=== PATIENT | female | born 1970 | race Caucasian/White ===

== ENCOUNTER → 2017-12-14 | Outpatient (CLI) | payer OTHER ==
[2017-12-14 08:40] LABS: HEMATOCRIT 39.6 % (37.0-47.0); HEMOGLOBIN 13.1 g/dl (12.0-16.0); MEAN CELL VOLUME 86.1 fl (81.0-99.0); MEAN CORPUSCULAR HGB 28.5 pg (27.0-31.0); MEAN CORPUSCULAR HGB CONC 33.1 g/dl (33.0-37.0); MEAN PLATELET VOLUME 10.1 fl (9.6-12.3); RED BLOOD COUNT 4.6 10*6/uL (4.10-5.10); RED CELL DISTRI WIDTH 12.6 % (0-14.5); WHITE BLOOD COUNT 7.6 10*3/uL (4.8-10.8)
[2017-12-14 09:17] LABS: CHLORIDE 106 mmol/L (98-107); SODIUM 139 mmol/L (136-145)
[2017-12-14 09:24] LABS: ALBUMIN 3.5 gm/dl (3.1-4.5); ALKALINE PHOSPHATASE 139 U/L (45-117); BUN 8 mg/dl (7-24); CHOLESTEROL 252 mg/dL (<200); CREATININE 0.68 mg/dL (0.55-1.02); HDL CHOLESTEROL 62 mg/dl (40-60); LDL CHOLESTEROL 163 mg/dL (9-159); SGOT/AST 17 IU/L (3-35); SGPT/ALT 25 U/L (12-78); TOTAL PROTEIN 7.1 gm/dL (6.4-8.2); TRIGLYCERIDES 135 mg/dl (<150); VLDL CHOLESTEROL 27 mg/dL (6-40)
[2017-12-14 15:42] LABS: VITAMIN D, 25-HYDROXY 12.9 ng/mL (30-100)
== END | disposition home or self-care (01) ==
LOC: LAB 08:16
PROVIDERS: Family Medicine
DX: E78.00 Pure hypercholesterolemia, unspecified (principal); E74.9 Disorder of carbohydrate metabolism, unspecified; M54.5 Low back pain; F41.1 Generalized anxiety disorder; E74.00 Glycogen storage disease, unspecified; K57.90 Diverticulosis of intestine, part unspecified, without perforation or abscess without bleeding

== ENCOUNTER 2019-07-30 16:01 | Emergency (ER) | payer OTHER ==
[~2019-07-30] VITALS: Wt 63.5 kg
== END 2019-07-30 17:04 | disposition home or self-care (01) ==
LOC: ED 16:01
DX: S01.01XA Laceration without foreign body of scalp, initial encounter (principal); Z88.1 Allergy status to other antibiotic agents; W20.8XXA Other cause of strike by thrown, projected or falling object, initial encounter; Y93.89 Activity, other specified; Y92.89 Other specified places as the place of occurrence of the external cause; Y99.8 Other external cause status

== ENCOUNTER 2019-08-06 15:24 | Emergency (ER) | payer OTHER ==
[~2019-08-06] VITALS: Ht 162.5 cm; Wt 65.8 kg
== END 2019-08-06 15:54 | disposition home or self-care (01) ==
LOC: ED 15:24
DX: S01.01XD Laceration without foreign body of scalp, subsequent encounter (principal); Z88.1 Allergy status to other antibiotic agents; W20.8XXD Other cause of strike by thrown, projected or falling object, subsequent encounter

== ENCOUNTER → 2020-08-01 | Outpatient (CLI) | payer OTHER | END | disposition home or self-care (01) | LOC: COVID19 15:47 | PROVIDERS: ATTEND Social Worker Clinical | DX: Z20.828 Contact with and (suspected) exposure to other viral communicable diseases (principal) ==

== ENCOUNTER 2023-01-14 22:03 | Emergency (ER) | payer OTHER ==
[~2023-01-14] VITALS: Ht 160 cm; Wt 70.3 kg
[2023-01-14] MEDS ORDERED: ZOLOFT50 MG PO (22:27)
[2023-01-14 22:43] LABS: BASO % 0.3 % (0.0-1.0); EOS # 0.2 10*3/uL (0.0-0.4); EOS % 2.1 % (1.0-4.0); HEMATOCRIT 37.3 % (37.0-47.0); LYMPH # 1.9 10*3/uL (1.3-4.4); LYMPH % 19.8 % (27.0-41.0); MEAN CELL VOLUME 83.4 fl (81.0-99.0); MEAN CORPUSCULAR HGB CONC 33.5 g/dl (33.0-37.0); MEAN PLATELET VOLUME 10.2 fl (9.6-12.3); MONO # 0.7 10*3/uL (0.1-1.0); MONO % 7.2 % (3.0-9.0); NEUT # 6.8 10*3/uL (2.3-7.9); NEUT % 70.4 % (47.0-73.0); PLATELET COUNT AUTOMATED 179 10*3/uL (130-400); RED BLOOD COUNT 4.47 10*6/uL (4.10-5.10); RED CELL DISTRI WIDTH 13.1 % (0-14.5); WHITE BLOOD COUNT 9.7 10*3/uL (4.8-10.8)
[2023-01-14 23:02] LABS: ALKALINE PHOSPHATASE 155 U/L (46-116); BUN 7 mg/dl (9-23); CHLORIDE 105 mmol/L (98-107); LIPASE 39 U/L (12-53); POTASSIUM 3.6 mmol/L (3.4-5.1); SGPT/ALT 25 U/L (10-49); TOTAL PROTEIN 6.8 gm/dL (6.0-8.0)
[2023-01-14] MEDS ORDERED: CIPRO500 MG PO (23:12)
[2023-01-14] MEDS ORDERED: METRONIDAZOLE500 M1 PO (23:12)
== END 2023-01-14 23:13 | disposition home or self-care (01) ==
LOC: ED 22:03
PROVIDERS: Internal Medicine
DX: K57.32 Diverticulitis of large intestine without perforation or abscess without bleeding (principal); R79.89 Other specified abnormal findings of blood chemistry; Z88.1 Allergy status to other antibiotic agents; Z87.442 Personal history of urinary calculi